=== PATIENT | male | born 1950 | race Caucasian/White ===

== ENCOUNTER → 2021-01-29 14:10 | Outpatient (CLI) | payer MEDICARE, BC, SELFPAY ==
--- NOTE | 2021-01-29 14:11 | DI.US.S_ITS ---
PROCEDURE: US RENAL COMPLETE INDICATIONS: URINARY URGENCY TECHNIQUE: Real-time scanning was performed of the kidneys and bladder, with image documentation. COMPARISON: None. FINDINGS: Kidneys: Kidneys are normal in size. Right kidney measures 10.6 cm long; left kidney measures 11.5 cm long. Right renal cortical thickness is 1.8 cm; left renal cortical thickness is 1.7 cm. Renal cortical echotexture is normal. No hydronephrosis or nephrolithiasis. No suspicious solid mass lesions. Bladder: Pre-void bladder volume is 454 mL. Post-void residual is 112 mL. Pre-void images demonstrate no intraluminal masses or stones. On pre-void images, bilateral ureteral jets are noted with color Doppler interrogation. (Of note, ureteral jets may not be detectable in up to 25% of cases due to insufficient differences in specific gravity between ureteral and bladder urine). Miscellaneous: No free pelvic fluid. Prostate is enlarged, measuring 5.0 x 3.8 x 4.4 cm. There is indentation on the base of the bladder by the prostate. IMPRESSION: 1. Normal size kidneys with no evidence of hydronephrosis. 2. Enlarged prostate. 3. Mild to moderate postvoid residual. Dictated by: Bj Chen M.D. on 01/29/2021 at 15:31 Approved by: Bj Chen M.D. on 01/29/2021 at 15:34
== END ==
PROVIDERS: PCP Family Medicine; Referring Provider Family Medicine; Visit Provider Family Medicine
DX: R33.9 Retention of urine, unspecified (principal); R35.0 Frequency of micturition; R39.15 Urgency of urination
CPT/HCPCS: 76770

== ENCOUNTER 2021-09-07 07:39 | Day surgery (SDC) | payer MEDICARE, OTHER, SELFPAY ==
[2021-09-02 15:08] VITALS: BMI 25.4
[2021-09-07 08:11] LABS: COVID19 -Nasal RAPID Negative (Negative)
[2021-09-07 08:24] VITALS: BP 115/74; PULSE 72; RESP 16; TEMP 36.6; O2SAT 99; BMI 25.4
--- NOTE | 2021-09-07 09:29 | P.HP_ITS ---
History of Present Illness History of Present Illness Date Patient Seen: 09/07/21 Time Patient Seen: 09:29 Chief complaint: OPEN RIH REPAIR W/MESH Narrative: 70-year-old man here for a open right inguinal hernia a repair elective, for a symptomatic reducible hernia. They have been no interval changes in his health. Please refer to the H& P from March 2021 for further detail. Patient History Medical History BPH (benign prostatic hyperplasia) (~2019) Hearing loss Hemochromatosis, hereditary (~1991) Hyperlipidemia (~2009) Hypertension (~2009) Tinnitus (~2017) Surgical History Anesthesia History of arthroscopy Family & Social History Family History Father Cancer Mother Stroke Social History: household members spouse Tobacco & Substance use: Smoking Status Never smoker alcohol intake current Substance Use Type does not use Meds Home Medications and Allergies Home Medications Medication Instructions Recorded Confirmed Type tamsulosin 0.4 mg capsule 0.4 mg PO DAILY #90 cap 02/02/21 09/07/21 Rx lisinopril 10 mg tablet 10 mg PO DAILY #90 tab 05/06/21 09/07/21 Rx simvastatin 10 mg tablet See Rx Instructions .ROUTE 07/26/21 09/07/21 Rx .COMPLEX #90 tab Allergies Allergy/AdvReac Type Severity Reaction Status Date / Time No Known Drug Allergies Allergy Verified 09/07/21 08:22 Exam Vital Signs (past 8 hours): - 09/07/21 08:24 Temperature 97.9 F Pulse Rate 72 Respiratory Rate 16 Blood Pressure 115/74 Pulse Oximetry 99 Oxygen Delivery Method Room Air Narrative Exam Narrative: GENERAL: Adult male in no apparent distress HEENT: No scleral icterus CV: Regular rate, no peripheral edema LUNGS: No increased work of breathing. Patient speaks in full sentences without oxygen support. ABDOMEN: Soft, non-tender, non-distended. Right inguinal hernia marked with my initials NEURO: Nonfocal, normal strength throughout, normal gait. SKIN: Warm and dry Objective Labs Labs: Laboratory Results - last 24 hr 09/07/21 07:02 SARS-CoV-2 (PCR) Negative Assessment & Plan Assessment and plan (1) Right inguinal hernia: Status: Acute Assessment & Plan narrative: 70-year-old man here for elective open right inguinal hernia repair. Technical details of the operation were discussed with the patient. Operative risks including bleeding, infection, chronic pain, recurrence, damage to surrounding structures were discussed. His questions have been answered he is in agreement with this plan. Time Spent With Patient Critical Care time: I spent a total of [] minutes of critical care time on this patient's care tod ay; this time is exclusive of procedural time.
[2021-09-07] MEDS: LACTATED RINGERS 1,000 ML 100 ML IV (09:45)
[2021-09-07] MEDS: CEFAZOLIN 2 GM/20 ML SYRINGE IV (10:11)
--- NOTE | 2021-09-07 10:18 | SUR.OPER ---
Addendum entered by Rosita Wylie R.N. 09/07/21 10:34: Patients glasses placed in hospital provided black glass case with patient label then placed in patient belongings bag in his boot. Original Note: Supine on padded OR bed, head on pillow, arms secured on padded arm boards at <90 degrees abduction, legs uncrossed, safety belt at thigh, tape over blanket over lower legs. Gel pad under bilateral heels. Patient voided in preop bathroom prior to entry to OR.
[2021-09-07] MEDS: BUPIVACAINE 0.25% (PF) VIAL 30 ML INJ (10:24)
[2021-09-07 11:10] VITALS: BP 91/52; PULSE 55; RESP 10; TEMP 36.6; O2SAT 94
[2021-09-07 11:15] VITALS: BP 91/52; PULSE 56; RESP 13; TEMP 36.6; O2SAT 94
[2021-09-07 11:20] VITALS: BP 90/53; PULSE 60; RESP 12; O2SAT 94
--- NOTE | 2021-09-07 11:23 | P.OP_ITS ---
Operative Date/Time/Diagnoses Date of procedure: 09/07/21 Time of procedure: 11:25 Pre-op diagnosis: right inguinal hernia Post-op diagnosis: same Procedure & Clinicians Procedure: open right inguinal hernia Same procedure as scheduled: Yes Indications: reducible symptomatic inguinal hernia Surgeon: Allan Marinelli Press Operator Apprentice: Maty Marinelli Anesthesia Type: General Operative Notes Findings: direct floor defect and indirect hernia Specimen(s): none sent Estimated Blood Loss (mL): 10 Procedure in detail: The patient was placed supine on the table and bilateral lower extremity compression devices were applied. Anesthesia was induced they were intubated with an LMA and received 2g of Ancef. A time-out was performed. They were prepped and draped in sterile fashion. The right external inguinal ring and the anterior superior iliac crest were identified and marked. 1 finger breath above the inguinal ligament the skin was infiltrated with 0.25% bupivacaine. The skin incision was made here and the subcutaneous tissues were divided with electrocautery exposing the external oblique aponeurosis which was then opened along the direction of its fibers. Using blunt dissection the internal oblique aporneurosis was from the external oblique upper leaflet to identify the iliohypogastric nerve. Using a kittner the cord was carefully dissected away from the inguinal canal adjacent to the pubic tubercle. The cord including the vas deferens, testicular bloody supply, ilioguinal and genital nerve were encircled with a Nina drain. A large direct floor defect was identified and it was reduced into the abdomen and the internal oblique aporneuorsis was approximated to the inguinal ligament with Ethibond suture over a plug of mesh to reapproximate the floor. The cremasteric fibers surrounding the cord were divided using electrocautery adjacent to the internal ring.. The vas deferens and the testicular vessels were preserved and protected. There was a small indirect hernia on the anterior medial aspect of the cord which was skeletonized away from the vas deferens and testicular blood supply. The indirect hernia was skeletonized back to the internal ring and reduced spontaneously into the abdomen. I selected a 7x 15 cm lightweight Pro Loop hernia mesh. The inferior medial aspect of the mesh was anchored to insertion of the rectus muscle to the pubic tubercle such that there was approximately 2 cm of tubercle overlap with Ethibond in interupted fashion along the inferior edge of the mesh to the shelving edge of the inguinal ligament. Interrupted 3 0 Vicryl suture was used to anchor the superior aspect of the mesh to the conjoined tendon in several places. The tails were then reapproximated loosely around the spermatic cord. The tails of the mesh were then tucked under the external oblique aponeurosis. The repair was checked for hemostasis. The wound was irrigated with sterile saline. The external oblique aponeurosis was reapproximated in a running fashion using 3 0 Vicryl. The subcutaneous tissues were reapproximated with 3 0 Vicryl skin closed with 4 0 Monocryl followed by the application of Dermabond. At the end of the operation I ensured that both testicles were within the scrotum. The sponge instrument count at the end operation was correct. The patient emerged from anesthesia was extubated and transferred to the postoperative care unit in stable condition. A total of 30 ml of of 0.25% bupivicaine was used to infiltrate the skin. Complications: none Post-operative Condition: stable Disposition: same day surgery
[2021-09-07 11:31] VITALS: BP 113/70; PULSE 68; RESP 13; TEMP 36.8; O2SAT 98
--- NOTE | 2021-09-07 12:29 | SUR.PHASEII ---
Pt still waiting for to come, Xenia called, still in line at [facility].
[2021-09-07 12:30] VITALS: BP 1121/79; PULSE 69; RESP 16; TEMP 36.7; O2SAT 98
--- NOTE | 2021-09-07 12:43 | SUR.PHASEII ---
returned call, on her way, pt finally left unit and left in stable condition.
== END 2021-09-07 12:30 | disposition home or self-care (01) ==
PROVIDERS: PCP Family Medicine; Referring Provider Surgery; Visit Provider Surgery
PROC: (CPT 49505; principal; 2021-09-07 09:15)
DX: K40.90 Unilateral inguinal hernia, without obstruction or gangrene, not specified as recurrent (principal); I10 Essential (primary) hypertension; E78.5 Hyperlipidemia, unspecified; N40.0 Benign prostatic hyperplasia without lower urinary tract symptoms; Z20.822 Contact with and (suspected) exposure to COVID-19
CPT/HCPCS: 49505; 87635; C1781; J0690; J1100; J1885; J2405; J2704; J3010

== ENCOUNTER → 2021-09-22 10:59 | Outpatient (CLI) | payer MEDICARE, OTHER, SELFPAY | PROVIDERS: PCP Family Medicine; Referring Provider Internal Medicine; Visit Provider Internal Medicine | DX: E83.110 Hereditary hemochromatosis (principal); Z53.8 Procedure and treatment not carried out for other reasons ==

== ENCOUNTER → 2022-10-18 11:23 | Outpatient (CLI) | payer MEDICARE, OTHER, SELFPAY | PROVIDERS: PCP Family Medicine; Visit Provider Physician Assistant | DX: R31.9 Hematuria, unspecified (principal) | CPT/HCPCS: 87086 ==

== ENCOUNTER → 2023-03-30 09:01 | Outpatient (CLI) | payer MEDICARE, OTHER, SELFPAY ==
[2023-03-30 19:59] LABS: Cholesterol 171 mg/dL (140-199); HDL Cholesterol 47 mg/dL (40-60); LDL Cholesterol Calculated 101 mg/dL (<100); Triglycerides 115 mg/dL (35-150)
[2023-03-30 20:28] LABS: Prostate Specific Antigen Scrn 0.769 ng/mL (0.1-4.0)
[2023-03-31 23:37] LABS: x Labcorp Estim. Avg Glu (eAG) 94 mg/dL (.); x Labcorp Hemoglobin A1c 4.9 % (4.8-5.6)
== END ==
PROVIDERS: PCP Family Medicine; Visit Provider Family Medicine
DX: I10 Essential (primary) hypertension (principal); Z12.5 Encounter for screening for malignant neoplasm of prostate; E78.5 Hyperlipidemia, unspecified; E83.110 Hereditary hemochromatosis; R73.9 Hyperglycemia, unspecified; N40.0 Benign prostatic hyperplasia without lower urinary tract symptoms
CPT/HCPCS: 80061; 83036; G0103